=== PATIENT | female | born 2000 | race Two or more races ===

== ENCOUNTER 2024-08-13 19:27 | Emergency (ER) | payer SELFPAY ==
[2024-08-13 20:11] LABS: APPEARANCE,URINE SLT CLOUDY; COLOR,URINE YELLOW; GLUCOSE,URINE 100 mg/dL (NEGATIVE); KETONES,URINE >=80 mg/dL (NEGATIVE); LEUKOCYTE ESTERASE,URINE MODERATE (NEGATIVE); NITRITE,URINE POSITIVE (NEGATIVE); OCCULT BLOOD,URINE LARGE (NEGATIVE); PROTEIN,URINE 100 mg/dL (NEGATIVE)
[2024-08-13 20:22] LABS: BILIRUBIN,URINE MODERATE (NEGATIVE)
[2024-08-13 20:23] LABS: BACTERIA,URINE FEW (NEGATIVE); EPITHELIAL CELLS,URINE FEW (NONE-FEW); MUCUS,URINE LIGHT (NONE-MOD); RBC,URINE TOO NUMEROUS TO CT (0-2/HPF); WBC,URINE 20-30 (0-5/HPF)
[2024-08-13] MEDS: Nitrofurantoin Monohydrate/Macrocrystalline 100 MG Cap PO ONE (20:48)
== END 2024-08-13 20:51 | disposition home or self-care (01) ==
LOC: MW.ED 19:27
DX: N39.0 Urinary tract infection, site not specified (principal); Z75.3 Unavailability and inaccessibility of health-care facilities; Z79.899 Other long term (current) drug therapy
CPT/HCPCS: 81001; 81025; 87086; 87088; 87186; 99283; A9270